=== PATIENT | male | born 1965 | race Caucasian/White ===

== ENCOUNTER 2016-06-07 10:33 | Emergency (ER) | payer OTHER ==
[2016-06-07 10:52] VITALS: BP 148/108
--- NOTE | 2016-06-07 10:53 | Emergency Department Report ---
Entered by JONNY RAMIREZ, acting as scribe for KAREN SANDS NP. Chief Complaint: Fall Stated Complaint: FALL AT WORK/HEAD INJURY Time Seen by Provider: 06/07/16 10:45 - HPI History of Present Illness: 50 male c/o 5/10 pain on his head after falling off a 4 foot high truck trailer at work earlier today. Pt notes neck pain, dizziness and lower back pain but denies any LOC or N/V. - ROS Review of Systems: +neck pain +dizziness +lower back pain -LOC -N/V - Exam Physical Exam: PT is alert and appropriate 4 cm laceration noted to the L post scalp. No active bleeding + post midline c-spine pain no point tenderness to t or l spine MSE screening note: Focused history and physical exam performed. Due to findings the following was ordered: CT head and C spine meds plain films ED Disposition for MSE Condition: Stable This documentation as recorded by the scribe,JONNY RAMIREZ,accurately reflects the service I personally performed and the decisions made by WICHO lares TRACY M CLINICAL APPEALS REVIEWER.
[2016-06-07] MEDS: TYLENOL PO ONE (10:56)
--- NOTE | 2016-06-07 11:16 | Cat Scan Report ---
CT HEAD WITHOUT CONTRAST: HISTORY: Close head injury. Serial contiguous axial images were obtained through the cranium. Intravenous contrast material was not administered. The ventricles are normal in size and appearance. There is no mass effect or midline shift. No areas of abnormally increased or decreased attenuation are seen. No mass lesion is seen. There is extensive mucoperiosteal thickening throughout the maxillary sinuses. The remaining sinuses and mastoid air cells are clear. IMPRESSION: Cranial CT scan within normal limits. Advanced chronic appearing maxillary sinus disease.
--- NOTE | 2016-06-07 11:17 | Cat Scan Report ---
CT SCAN OF THE CERVICAL SPINE: HISTORY: Injury, pain. TECHNIQUE: Contiguous 1.25 mm axial images of the cervical spine were obtained. Sagittal and coronal reformatted images. FINDINGS: There is normal alignment of the cervical spine. The body, pedicles and posterior ligaments are intact. Mild degenerative disc disease at C4-5 and C5-6 is noted. No evidence of fracture or subluxation is seen. The spinal canal appears normal. The prevertebral soft tissues appear normal. IMPRESSION: Mild cervical spondylosis. No acute process is noted.
--- NOTE | 2016-06-07 11:56 | XRay Report ---
LUMBOSACRAL SPINE, 3 VIEWS: History: Back pain Findings: The vertebral bodies, disk spaces and posterior elements are intact. No compression deformity or malalignment. The SI joints are symmetric and unremarkable. Impression: 1. No evidence for acute injury to the lumbar spine.
[2016-06-07] MEDS ORDERED: BOOSTRIX IM ONE (13:59)
[2016-06-07] MEDS: BOOSTRIX IM ONE (14:05)
--- NOTE | 2016-06-07 14:13 | Emergency Department Report ---
ED Fall HPI - General Chief Complaint: Fall Stated Complaint: FALL AT WORK/HEAD INJURY Time Seen by Provider: 06/07/16 10:45 Source: patient Mode of arrival: Ambulatory - History of Present Illness Initial Comments: 50-year-old [place] male comes in for complaint of falling backwards off a truck. Patient proceeded back of his head on concrete he reports he has a laceration to the back of his head. Denies any active bleeding at this time he did not lose consciousness he does not have a change in vision no nausea no vomiting. He reports that he had a little dizziness earlier but that has resolved. - Related Data Home Medications Medication Instructions Recorded Confirmed Last Taken No Known Home Medications [No 06/07/16 06/07/16 Unknown Reported Home Medications] Allergies Allergy/AdvReac Type Severity Reaction Status Date / Time No Known Allergies Allergy Unverified 06/07/16 10:54 ED Review of Systems ROS: Stated complaint: FALL AT WORK/HEAD INJURY Other details as noted in HPI ED Past Medical Hx - Past Medical History Previous Medical History?: No - Surgical History Past Surgical History?: No - Social History Smoking Status: Never Smoker Substance Use Type: Alcohol - Medications Home Medications: Home Medications Medication Instructions Recorded Confirmed Last Taken Type No Known Home Medications [No 06/07/16 06/07/16 Unknown History Reported Home Medications] ED Physical Exam - General Limitations: Language Barrier - Eye Eye exam: Present: normal appearance, PERRL, EOMI Pupils: Present: normal accommodation - ENT ENT exam: Present: normal exam, mucous membranes moist - Neck Neck exam: Present: normal inspection, full ROM. Absent: tenderness, lymphadenopathy - Cardiovascular Cardiovascular Exam: Present: regular rate, normal rhythm, normal heart sounds - Neurological Exam Neurological exam: Present: alert, oriented X3 - Expanded Neurological Exam Expanded Cranial nerves: EOM's Intact: Normal, Gag Reflex: Normal, Tongue Deviation: Normal, Nystagmus: Normal Cerebellar function: Finger to Nose: Normal, Heel to Black: Normal, Romberg: Normal Upper motor neuron: Mu Neglect: Normal, Pronator Drift: Normal Sensory exam: Upper Extremity Light Touch: Normal, Lower Extremity Light Touch: Normal Motor strength exam: RUE: 5, LUE: 5, RLE: 5, LLE: 5 Best Eye Response (Edwin): (4) open spontaneously Best Motor Response (Edwin): (6) obeys commands Best Verbal Response (Edwin): (5) oriented Edwin Total: 15 - Psychiatric Psychiatric exam: Present: normal affect, normal mood. Absent: depressed, agitated, anxious - Skin Skin exam: Present: warm, dry, other (4 cm laceration to the posterior back of head.) ED Course Vital Signs 06/07/16 06/07/16 10:46 10:56 Temperature 98.8 F Pulse Rate 83 Respiratory 17 17 Rate Blood Pressure 148/108 O2 Sat by Pulse 96 Oximetry - Laceration /Wound Repair Posterior Head Wound Length (cm): 4 Wound's Depth, Shape: superficial, linear Wound Explored: clean Irrigated w/ Saline (ccs): 30 Betadine Prep?: Yes Wound Debrided: minimal Wound Repaired With: sutures Number of Sutures: 7 Layer Closure?: No Sterile Dressing Applied?: Yes (7 dia applied to the posterior area of the head.) Progress: Patient tolerated procedure very well. ED Medical Decision Making - Radiology Data Radiology results: report reviewed, image reviewed IMPRESSION: Cranial CT scan within normal limits. Advanced chronic appearing maxillary sinus disease. IMPRESSION: Mild cervical spondylosis. No acute process is noted. Impression: 1. No evidence for acute injury to the lumbar spine. Transcribed By: TTR Dictated By: ROB MEJIA JR, MD Electronically Authenticated By: ROB MEJIA JR, MD Signed Date/Time: 06/07/16 1148 - Medical Decision Making He has been evaluated by this provider fast track. Discussed patient that his CT scan were all negative. Discussed the patient that we will place dia at a scalp to bring in the laceration for good healing process. Discussed with patient that he can take Tylenol for pain. He can return back to work tomorrow. Also explained to patient he may have a little headache the next day after hitting his head. He needs to be aware that to return back to the emergency room if he has any change in his mental status. Nausea vomiting irretractable pain. Change in vision. Patient verbalized understanding Critical care attestation.: If time is entered above; I have spent that time in minutes in the direct care of this critically ill patient, excluding procedure time. ED Disposition Clinical Impression: Fall Qualifiers: Encounter type: initial encounter Qualified Code(s): W19.XXXA - Unspecified fall, initial encounter Head injury Qualifiers: Encounter type: initial encounter Qualified Code(s): S09.90XA - Unspecified injury of head, initial encounter Disposition: DISCHARGED TO HOME OR SELFCARE Is pt being admited?: No Does the pt Need Aspirin: No Condition: Stable Instructions: Concussion (ED), Minor Head Injury (ED) Additional Instructions: Return to the emergency room if he starts to vomit any nausea change in vision or mental status. He can take Tylenol for pain. Please return to the emergency room to have dia removed in 5-7 days. Referrals: PRIMARY CARE,MD [Primary Care Provider] - 3-5 Days Forms: Accompanied Note, Work/School Release Form(ED)
== END 2016-06-07 14:28 | disposition home or self-care (01) ==
LOC: ED 10:33
DX: S01.81XA Laceration without foreign body of other part of head, initial encounter (principal); V98.8XXA Other specified transport accidents, initial encounter; Y92.488 Other paved roadways as the place of occurrence of the external cause; Y93.89 Activity, other specified; Y99.8 Other external cause status
CPT/HCPCS: 70450; 72100; 72125; 90471; 90715

== ENCOUNTER 2016-06-14 18:35 | Emergency (ER) | payer OTHER ==
[2016-06-14 18:43] VITALS: BP 145/99
--- NOTE | 2016-06-14 19:00 | Emergency Department Report ---
Entered by JONNY RAMIREZ, acting as scribe for OBDULIO LUCAS NP. Chief Complaint: Laceration/Recheck/Suture Stated Complaint: SUTURE REMOVAL Time Seen by Provider: 06/14/16 18:45 - HPI History of Present Illness: 50 y/o male presents with staple removal after a laceration that he was treated at [facility] for 7 days ago. Pt notes no pain or issues. no neuro or focal deficits NAD VSS Ambulatory language barrier dia placed last week removed wo difficulty - ROS Review of Systems: as noted in HPI - Exam Vital Signs: Vital Signs 06/14/16 18:39 Temperature 98.4 F Pulse Rate 82 Respiratory 18 Rate Blood Pressure 145/99 O2 Sat by Pulse 97 Oximetry Physical Exam: as noted in HPI MSE screening note: Focused history and physical exam performed. Due to findings the following was ordered: ED Disposition for MSE Clinical Impression: Removal of staple Disposition: DISCHARGED TO HOME OR SELFCARE Is pt being admited?: No Does the pt Need Aspirin: No Condition: Good Instructions: Suture Removal (ED) Additional Instructions: keep clean and dry This documentation as recorded by the scribe,JONNY RAMIREZ,accurately reflects the service I personally performed and the decisions made by me,OBDULIO LUCAS NP.
== END 2016-06-14 19:30 | disposition home or self-care (01) ==
LOC: ED 18:35
DX: Z48.02 Encounter for removal of sutures (principal)